=== PATIENT | male | born 1995 | race Caucasian/White ===

== ENCOUNTER 2016-10-05 12:10 | Emergency (ER) | payer BC ==
[2016-10-05 14:43] VITALS: BP 130/73
--- NOTE | 2016-10-05 15:42 | UC ---
Throat Pain/Nasal Yunior HPI - HPI Summary HPI Summary: sinus pain/pressure. Had influenza last week with fever to 103/104. Still with dry cough. Sinuses got worse and worse, now with purulent drainage, pain over maxillary areas, headache, teeth all aching. No ST or earache. - History of Current Complaint Chief Complaint: UCRespiratory Stated Complaint: SINUS COMPLAINT Time Seen by Provider: 10/05/16 15:16 Hx Obtained From: Patient Onset/Duration: Gradual Onset, Lasting Weeks - 2 Severity: Moderate Cough: Nonproductive Associated Signs & Symptoms: Positive: Sinus Discomfort, Nasal Discharge. Negative: Dysphagia, Wheezing, Hoarseness, Fever, Vomiting - Epiglottits Risk Factors Epiglottis Risk Factors: Negative - Allergies/Home Medications Allergies/Adverse Reactions: Allergies Allergy/AdvReac Type Severity Reaction Status Date / Time No Known Allergies Allergy Verified 10/05/16 14:40 PMH/Surg Hx/FS Hx/Imm Hx Previously Healthy: Yes - Surgical History Surgical History: Yes Surgery Procedure, Year, and Place: [facility] . - Family History Known Family History: Positive: Cardiac Disease - Social History Occupation: Student Lives: Alone - dorm Alcohol Use: None Substance Use Type: None Smoking Status (MU): Never Smoked Tobacco - Immunization History Most Recent Influenza Vaccination: Not the 2015/2016 Season Review of Systems Constitutional: Fatigue Skin: Negative Eyes: Negative ENT: Dental Pain - diffuse pain from sinuses, "all my top teeth hurt", Nasal Discharge Respiratory: Cough Cardiovascular: Negative Gastrointestinal: Negative Genitourinary: Negative Motor: Negative Neurovascular: Negative Musculoskeletal: Negative Neurological: Negative Psychological: Negative All Other Systems Reviewed And Are Negative: Yes Physical Exam Triage Information Reviewed: Yes Appearance: Well-Appearing, No Pain Distress, Well-Nourished Vital Signs: Initial Vital Signs Temp 99 F 10/05/16 14:38 Pulse 86 10/05/16 14:38 Resp 16 10/05/16 14:38 BP 130/73 10/05/16 14:38 Pulse Ox 100 10/05/16 14:38 Vital Signs Reviewed: Yes Eye Exam: Normal ENT: Positive: Hearing grossly normal, Pharynx normal, Nasal congestion, TMs normal. Negative: Tonsillar swelling, Tonsillar exudate, Trismus, Muffled/ hoarse voice Neck exam: Normal Respiratory Exam: Normal Cardiovascular Exam: Normal Musculoskeletal Exam: Normal Neurological Exam: Normal Psychological Exam: Normal Skin Exam: Normal Throat Pain/Nasal Course/Dx - Differential Dx/Diagnosis Differential Diagnosis/HQI/PQRI: Pharyngitis, Sinusitis, URI Provider Diagnoses: sinusitis Discharge - Discharge Plan Condition: Stable Disposition: HOME Prescriptions: Amoxicillin/Clavulanate TAB* [Augmentin TAB 875*] 875 mg PO BID #20 tab Patient Education Materials: Sinusitis (ED) Referrals: Non Staff,Doctor [Primary Care Provider] -
== END 2016-10-05 15:54 | disposition home or self-care (01) ==
LOC: UCCORT 12:10
DX: J32.9 Chronic sinusitis, unspecified (principal)
CPT/HCPCS: 99212; G0463

== ENCOUNTER 2019-01-11 12:20 | Emergency (ER) | payer BC ==
[2019-01-11 12:33] VITALS: BP 118/67
[2019-01-11] MEDS ORDERED: Ondansetron INJ* 2 MG/ML VIAL IV ONE (12:38)
[2019-01-11] MEDS ORDERED: NS 0.9% 1000 ML** 1,000 ML IV ONE (12:39)
--- NOTE | 2019-01-11 13:49 | UC ---
Abdominal Pain Female HPI - HPI Summary HPI Summary: nausea / vomiting x 1 day cannot keep anything down , has been vomiting all night no significant abdominal pain has been drinking alcohol since 4 pm yesterday after collage graduation no fever, + chills, no diarrhea, no urinary sx - History of Current Complaint Chief Complaint: UCGeneralIllness Stated Complaint: VOMITING,WEAK Time Seen by Provider: 01/11/19 12:33 Hx Obtained From: Patient Onset/Duration: Gradual Onset, Lasting Days - 1, Still Present Timing: Constant Severity Initially: Severe Severity Currently: Severe Pain Intensity: 0 Location: Diffuse Radiates: No Character: Not Applicable Aggravating Factor(s): Food Alleviating Factor(s): Vomiting Associated Signs and Symptoms: Positive: Decreased Appetite, Nausea, Vomiting. Negative: Diaphoresis, Fever, Cough, Chest Pain, Dizzy, Back Pain, Constipation , Blood in Stool, Urinary Symptoms, Diarrhea Allergies/Adverse Reactions: Allergies Allergy/AdvReac Type Severity Reaction Status Date / Time No Known Allergies Allergy Verified 01/11/19 12:26 Home Medications: Home Medications Antidepressant 01/11/19 [History] Naproxen Sodium [Aleve] 220 mg PO PRN 01/11/19 [History] PMH/Surg Hx/FS Hx/Imm Hx Previously Healthy: Yes - Surgical History Surgical History: Yes Surgery Procedure, Year, and Place: [facility]. - Family History Known Family History: Positive: Cardiac Disease - Social History Alcohol Use: Rare Substance Use Type: None Smoking Status (MU): Never Smoked Tobacco - Immunization History Most Recent Influenza Vaccination: Not the Season Review of Systems All Other Systems Reviewed And Are Negative: Yes Constitutional: Positive: Negative Skin: Positive: Negative Eyes: Positive: Negative ENT: Positive: Negative Respiratory: Positive: Negative Gastrointestinal: Positive: Vomiting, Nausea. Negative: Diarrhea Genitourinary: Negative: Dysuria, Hematuria, Frequency, Urgency Is Patient Immunocompromised?: No Physical Exam Triage Information Reviewed: Yes Appearance: Ill-Appearing Vital Signs: Initial Vital Signs Temp 97.3 F 01/11/19 12:28 Pulse 68 01/11/19 12:28 Resp 20 01/11/19 12:28 BP 118/67 01/11/19 12:28 Pulse Ox 100 01/11/19 12:28 Vital Signs Reviewed: Yes Eye Exam: Normal Eyes: Positive: Conjunctiva Clear ENT: Positive: Normal ENT inspection, Hearing grossly normal, Pharynx normal, TMs normal. Negative: Pharyngeal erythema Neck: Positive: Supple, Nontender, No Lymphadenopathy Respiratory: Positive: Chest non-tender, Lungs clear, Normal breath sounds Cardiovascular: Positive: RRR, No Murmur, Pulses Normal Abdomen Description: Positive: Nontender, Soft. Negative: CVA Tenderness (R), CVA Tenderness (L), Distended, Guarding Bowel Sounds: Positive: Present Skin Exam: Normal Abd Pain Female Course/Dx - Differential Dx/Diagnosis Provider Diagnosis: Alcohol intoxication Discharge - Sign-Out/Discharge Documenting (check all that apply): Patient Departure All imaging exams completed and their final reports reviewed: No Studies - Discharge Plan Condition: Improved Disposition: HOME Prescriptions: Ondansetron ODT TAB* [Zofran 4 MG Odt TAB*] 8 mg PO Q8H PRN #3 tab.odt PRN Reason: Nausea/Vomiting Patient Education Materials: Alcohol Intoxication (ED) Referrals: Non Staff,Doctor [Primary Care Provider] - If Needed - Billing Disposition and Condition Condition: IMPROVED Disposition: Home
== END 2019-01-11 14:07 | disposition home or self-care (01) ==
LOC: UCCORT 12:20
DX: F10.129 Alcohol abuse with intoxication, unspecified (principal); R11.2 Nausea with vomiting, unspecified
CPT/HCPCS: 96361; 96374; 99211; G0463; J2405

== ENCOUNTER 2019-05-21 09:32 | Emergency (ER) | payer BC ==
[2019-05-21 09:58] VITALS: BP 110/71
--- NOTE | 2019-05-21 10:44 | UC ---
Eye Complaint HPI - HPI Summary HPI Summary: 23-year-old male presents with onset of left eye redness, itchiness, purulent drainage, and crusting shut of the eye this morning. Patient states he has had 3 or 4 days of some nasal congestion with clear nasal discharge which she has been treating successfully with [id number] cold medication. Denies eye injury, visual disturbances, eye pain, photophobia, fever, chills, ear pain, sore throat, or cough. - History of Current Complaint Chief Complaint: UCEye Stated Complaint: L EYE COMP Time Seen by Provider: 05/21/19 10:42 Hx Obtained From: Patient Pain Intensity: 0 - Allergies/Home Medications Allergies/Adverse Reactions: Allergies Allergy/AdvReac Type Severity Reaction Status Date / Time No Known Allergies Allergy Verified 05/21/19 09:58 PMH/Surg Hx/FS Hx/Imm Hx Previously Healthy: Yes - Denies significant PMH - Surgical History Surgical History: Yes Surgery Procedure, Year, and Place: [facility] . - Family History Known Family History: Positive: Cardiac Disease - Social History Occupation: Student Lives: Dormitory/Roommates Alcohol Use: Occasionally Substance Use Type: None Smoking Status (MU): Never Smoked Tobacco - Immunization History Most Recent Influenza Vaccination: Not the 2016/2017 Season Review of Systems All Other Systems Reviewed And Are Negative: Yes Constitutional: Negative: Fever, Chills Skin: Negative: Rash Eyes: Positive: Drainage, Eye Redness. Negative: Blurred Vision, Diplopia, Photophobia ENT: Positive: Nasal Discharge, Sinus Congestion. Negative: Sore Throat, Ear Ache, Sinus Pain/Tenderness Respiratory: Negative: Shortness Of Breath, Cough Cardiovascular: Positive: Negative Gastrointestinal: Positive: Negative Genitourinary: Positive: Negative Musculoskeletal: Positive: Negative Neurological: Positive: Negative Is Patient Immunocompromised?: No Physical Exam - Summary Physical Exam Summary: GENERAL APPEARANCE: Well developed, well nourished, alert and cooperative, and appears to be in no acute distress. EYES: Right conjunctiva clear. No drainage. Left conjuctival erythema with purulent drainage. No FB noted. PERRL, EOM intact. Vision is grossly intact. EARS: External auditory canals and tympanic membranes clear, hearing grossly intact. NOSE: Mild nasal congestion. THROAT: Pharynx normal. No tonsilar inflammation, swelling, exudate, or lesions. Uvula midline. NECK: Neck supple, non-tender without lymphadenopathy. CARDIAC: Normal S1 and S2. No S3, S4 or murmurs. Rhythm is regular. There is no peripheral edema, cyanosis or pallor. Extremities are warm and well perfused. Capillary refill is less than 2 seconds. Peripheral pulses intact. LUNGS: Clear to auscultation without rales, rhonchi, wheezing or diminished breath sounds. ABDOMEN: Positive bowel sounds. Soft, nondistended, nontender. No guarding or rebound. No masses or hepatosplenomegally. MUSKULOSKELETAL: ROM intact to all extremities. No joint erythema or tenderness. Normal muscular development. Normal gait. SKIN: Skin normal color, texture and turgor with no lesions or eruptions. Triage Information Reviewed: Yes Vital Signs: Initial Vital Signs Temp 98.3 F 05/21/19 09:55 Pulse 82 05/21/19 09:55 Resp 16 05/21/19 09:55 BP 110/71 05/21/19 09:55 Pulse Ox 100 05/21/19 09:55 Vital Signs Reviewed: Yes Eye Complaint Course/Dx - Course Course Of Treatment: 23-year-old male presents with onset of left eye redness, itchiness, purulent drainage, and crusting shut of the eye this morning. Patient states he has had 3 or 4 days of some nasal congestion with clear nasal discharge which she has been treating successfully with [id number] cold medication. Denies eye injury, visual disturbances, eye pain, photophobia, fever, chills, ear pain, sore throat, or cough. Afebrile. Vital signs stable. Patient had left conjunctival erythema with purulent discharge, no foreign body noted, vision was grossly intact, mild nasal congestion, and otherwise unremarkable exam. Will treat for a left bacterial conjunctivitis with trimethoprim diminished polymyxin B ophthalmic 1-2 drops 4 times a day for 7 days. He is to return here or follow up with the [facility] in 3 days if symptoms do not improve. Anticipatory guidance and warning symptoms were reviewed with the patient. Verbalizes understanding and agrees with plan of care. - Differential Dx/Diagnosis Differential Diagnosis/HQI/PQRI: Conjunctivitis, Corneal Abrasion, Foreign Body , Periorbital Cellulitis, Orbital Cellulitis Provider Diagnosis: Bacterial conjunctivitis of left eye Discharge ED - Sign-Out/Discharge Documenting (check all that apply): Patient Departure All imaging exams completed and their final reports reviewed: No Studies - Discharge Plan Condition: Stable Disposition: HOME Prescriptions: Polymyx/Trimethoprim OPTH* [Polytrim OPHTH*] 1 drop LEFT EYE QID 7 Days #1 btl Patient Education Materials: Conjunctivitis (ED) Referrals: No Primary Care Phys,NOPCP [Primary Care Provider] - Additional Instructions: Your symptoms and exam are consistent with a bacterial conjunctivitis (pink eye) . We will start you on an antibiotic eye drop to treat the infection. Start trimethoprim-polymixin B ophthalmic. Instill 1-2 drops into the affected eye four times a day for 7 days. To avoid reinfection or spreading infection: * Use washcloths and towels once then launder. * Do not share washcloths or towels with others. * Change your pillow case each morning until you have finished treatment. * You should throw out any eye makeup, especially mascara, and use a new one once you have finished treatment. Follow up here or with the [facility] in 3 days if no improvement. Seek immediate medical attention in the emergency room if you develop fever greater than 100.5 F, have pain or swelling of the eye, visual disturbances, loss of vision, or any worsening of symptoms. - Billing Disposition and Condition Condition: STABLE Disposition: Home
== END 2019-05-21 11:30 | disposition home or self-care (01) ==
LOC: UCCORT 09:32
DX: H10.022 Other mucopurulent conjunctivitis, left eye (principal)
CPT/HCPCS: 99212; G0463